=== PATIENT | male | born 1975 | race Caucasian/White ===

== ENCOUNTER 2021-02-09 10:37 | Emergency (ER) | payer SELFPAY ==
[2021-02-09 11:18] VITALS: BP 168/99; PULSE 54; RESP 14; TEMP 36.8; O2SAT 100
--- NOTE | 2021-02-09 12:43 | ED.GENADULT ---
HPI - General Adult General Chief complaint: Skin/Abscess/Foreign Body Stated complaint: EVERYTHING INFECTED' Time Seen by Provider: 02/09/21 11:51 Source: patient Mode of arrival: ambulatory Limitations: no limitations History of Present Illness HPI narrative: Patient presents for evaluation of skin problems and swelling gland in the neck . 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 He states he has noted some purulent drainage from a lesion to the fifth digit of the right hand. He has associated redness. No fever, chills, nausea, vomiting. He is not diabetic. Smokes 1 pack/day. Over the last few days he has noted right-sided cervical lymphadenopathy without associated sore throat, otalgia or respiratory symptoms. No history of similar symptoms. No additional complaints or concerns. Related Data Allergies Allergy/AdvReac Type Severity Reaction Status Date / Time No Known Allergies Allergy Mild Verified 02/09/21 11:33 Review of Systems Review of Systems: CONSTITUTIONAL: Denies fever, chills, or sweats. EYES: Denies visual changes, redness, or discharge. ENT: Denies rhinorrhea, congestion, sore throat, or otalgia. CARDIOVASCULAR: Denies chest pain, palpitations, or edema. RESPIRATORY: Denies cough or dyspnea. GASTROINTESTINAL: Denies abdominal pain, nausea, vomiting, or diarrhea. GENITOURINARY: Denies dysuria or hematuria. SKIN: Reports abrasions to bilateral hands. Reports purulent drainage from the fifth digit of the right hand. MUSCULOSKELETAL: Denies back pain, joint pain, or myalgia. NEUROLOGIC: Denies headache, numbness, dizziness, or weakness. PSYCHIATRIC: Denies anxiety or depression. 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 HEAD: Normocephalic, atraumatic. EYES: PERRLA and EOMI. ENT: Nares clear, no rhinorrhea or epistaxis. Mucous membranes moist. Oropharynx with bilateral tonsillar swelling and erythema. No posterior pharyngeal exudate. Uvula is midline. Bilateral TM erythema with middle ear fluid present NECK: Supple. I do not appreciate any cervical lymphadenopathy or masses. No carotid bruits or JVD CHEST: Clear to auscultation. No respiratory distress. No wheezes rales or rhonchi HEART: Regular rate and rhythm. No murmur heard. Normal peripheral pulses. ABDOMEN: Soft, nontender, nondistended, normal active bowel sounds. EXTREMITIES: Normal range of motion. No edema. SKIN: Multiple abrasions noted to the dorsal aspect of the bilateral hands. There is an approximately 1 cm annular area of erythema overlying the dorsal aspect of the fifth digit of the right hand without associated fluctuance or drainage. Skin is otherwise warm, dry, no rash. NEURO: No focal deficits. Alert and oriented x3. PSYCH: Normal mood and affect. Course Course Emergency Course: This is a 45-year-old male who presented with abrasions to his bilateral hands as well as subjective right-sided cervical lymphadenopathy. On exam he has bilateral tonsillar enlargement with erythema. Strep was positive. He does not appear to
[2021-02-09 13:52] LABS: Monoscreen Negative (Negative); Negative Monotest Control Negative (Negative); Positive Monotest Control Positive (Positive)
== END 2021-02-09 13:40 | disposition home or self-care (01) ==
PROVIDERS: Emergency Provider Nurse Practitioner
DX: J02.0 Streptococcal pharyngitis (principal); S60.519A Abrasion of unspecified hand, initial encounter
CPT/HCPCS: 36415; 86308; 87880; 99283